=== PATIENT | female | born 1995 | race Caucasian/White ===

== ENCOUNTER 2022-05-26 10:14 | Emergency (ER) | payer SELFPAY ==
[2022-05-26 10:21] VITALS: BP 131/79; PULSE 96; RESP 14; TEMP 36.2; O2SAT 100; BMI 18.9
--- NOTE | 2022-05-26 10:55 | ED.BACK ---
HPI - Back Pain/Injury General Chief Complaint: Back Injury/Pain Stated Complaint: Pain R shoulder blade/back Time Seen by Provider: 05/26/22 10:17 History of Present Illness HPI Narrative: This 26-year-old female comes in reporting severe upper back pain on the right side of the spine that became much worse last evening. She states that she gets zingers that radiate down her right arm and leg at times. She reports a long-term history of back pain since when she was in her grade school and high school years. She does report scoliosis and has been to a chiropractor more recently. She does not report any specific injury event or strenuous activity. She does have pain with rotating her the neck left and right. Related Data Home Medications Medication Instructions Recorded Confirmed venlafaxine 150 mg 225 mg PO DAILY 05/26/22 05/26/22 capsule,extended release 24 hr Previous Rx's Medication Instructions Recorded cyclobenzaprine 10 mg tablet 10 mg PO TID #15 tabs 05/26/22 hydrocodone 5 mg-acetaminophen 325 1 tab PO Q4-6H PRN pain #15 tabs 05/26/22 mg tablet ketorolac 10 mg tablet 10 mg PO Q8H 5 days #15 tabs 05/26/22 methylprednisolone 4 mg tablets in See Rx Instructions PO .COMPLEX 05/26/22 a dose pack (Medrol (Julio C)) #21 ea Allergies Allergy/AdvReac Type Severity Reaction Status Date / Time metronidazole AdvReac Unknown Rash Verified 05/26/22 10:25 Review of Systems Status of ROS: Reports: 10 or more systems reviewed and unremarkable except as noted in History and below Narrative: Constitutional: No fevers, no weight gain or loss. Eyes: No discharge. No vision changes. HENT: No congestion, no sore throat, no ear pain. Cardiovascular: No chest pain, no palpitations. Respiratory: No shortness of breath, no wheezes, no cough. Gastrointestinal: No abdominal pain, no vomiting, no diarrhea. Genitourinary: No dysuria, no hematuria. Musculoskeletal: Right upper back pain as described above with decreased range of motion of her due to spasm. Skin: No rashes, no pruritis. Neurological: No dizziness, weakness, sensory change, speech change. Endo/Heme/Allergies: No bruising or bleeding. No polydipsia. Pysch: no suicidality, no anxiety, no insomnia. All other systems reviewed and are negative. PFSH PFS Social History Smoking Status: Unknown if ever smoked Exam Narrative: Exam Narrative: Constitutional: Well-developed, well-nourished, no acute distress. HEENT: Normocephalic, atraumatic. Neck: Normal range of motion. Nontender. Supple. Heart: Regular. No murmurs. Normal rate. Intact distal pulses. Lungs: Clear to auscultation. No chest discomfort. No wheezes, rhonchi, or rales. Abdomen: Normal bowel sounds. Nontender. No rebound tenderness. Genitalia: Deferred. Back: No midline tenderness when palpating along the spine. Pain is located in the right upper back between the scapula and spine. Extremities: Normal range of motion. No injury. Skin: Intact. No rash. Warm. No erythema or pallor. Neurologic: No altered sensation. No weakness. Alert and oriented. Psychiatric: No suicidality. No anxiety or depression. No insomnia. Nursing notes and vitals signs are reviewed. Const: Vital Signs, click to edit/add: Vital Signs - 24 hr 05/26/22 10:21 Temperature 97.1 F L Pulse Rate [Pulse Oximeter] 96 Respiratory Rate 14 Blood Pressure [Le ft Upper Arm] 131/79 Pulse Oximetry 100 Oxygen Delivery Me thod Room Air Course Vital Signs Vital signs: Initial Vital Signs Temperature 97.1 F L 05/26/22 10:21 Temperature Source Temporal Artery Scan 05/26/22 10:21 Pulse Rate 96 05/26/22 10:21 Pulse Rhythm 05/26/22 10:21 Respiratory Rate 14 05/26/22 10:21 Blood Pressure 131/79 05/26/22 10:21 Blood Pressure Mean 96 05/26/22 10:21 Blood Pressure Position Sitting 05/26/22 10:21 Pulse Oximetry 100 05/26/22 10:21 Oxygen Delivery Method 05/26/22 10:21 Vital Signs Temperature 97.1 F L 05/26/22 10:21 Pulse Rate 96 05/26/22 10:21 Respiratory Rate 14 05/26/22 10:21 Blood Pressure 131/79 05/26/22 10:21 Pulse Oximetry 100 05/26/22 10:21 Oxygen Delivery Method 05/26/22 10:21 Temperature 97.1 F L 05/26/22 10:21 Pulse Rate 96 05/26/22 10:21 Respiratory Rate 14 05/26/22 10:21 Blood Pressure 131/79 05/26/22 10:21 Pulse Oximetry 100 05/26/22 10:21 Oxygen Delivery Method 05/26/22 10:21 MDM - Back Pain/Injury MDM Narrative Medical decision making narrative: This patient comes in with upper back pain as described above. I did attempt to do Spurling's test with her. She gave her best effort but had distinct pain when attempting to extend her neck and turn to the right. There may be a cervical radiculopathy component to her symptoms as it does radiate down at times into her extremities on the right side. She did not have any recent injury event or strenuous activity that mandate imaging at this time. If not improved she may need such imaging. Today she received an intramuscular injection of Toradol 15 mg and prescriptions for Toradol, Cross, Flexeril, and Medrol Dosepak. I informed her regarding the spine clinic here and advised her to follow-up as needed. She sounded very interested in this resource. Discharge Plan Discharge Clinical Impression: Cervical radiculopathy Patient Disposition: Home, Self-Care Condition: Stable Additional Instructions: Take medications as needed and indicated. Follow up with MD or return if worsening. Prescriptions: New cyclobenzaprine 10 mg tablet 10 mg PO TID Qty: 15 0RF hydrocodone-acetaminophen 5-325 mg tablet 1 tab PO Q4-6H PRN (Reason: pain) Qty: 15 0RF ketorolac 10 mg tablet 10 mg PO Q8H 5 Days Qty: 15 0RF methylprednisolone [Medrol (Julio C)] 4 mg tablets,dose pack See Rx Instructions .ROUTE .COMPLEX Qty: 21 0RF Rx Instructions: orally per package directions No Action venlafaxine 150 mg capsule,extended release 24hr 225 mg PO DAILY Label Comments: TAKE 1 CAPSULE BY MOUTH DAILY WITH 75 MG CAPSULE FOR 225 MG TOTAL Follow Up/Referrals: Piero Arias MD [Primary Care Provider] - Stand Alone Forms: [employer] Info Instructions
[2022-05-26] MEDS: KETOROLAC 15 MG/ML inj IM (11:07)
[2022-05-26 11:13] VITALS: BP 131/79; PULSE 96; RESP 14; TEMP 36.2
== END 2022-05-26 11:14 | disposition home or self-care (01) ==
LOC: ED 11:09
PROVIDERS: Emergency Provider Emergency Medicine Emergency Medical Services; PCP Surgery
DX: M54.12 Radiculopathy, cervical region (principal)
CPT/HCPCS: 96372; 99283; 99284; J1885

== ENCOUNTER 2022-06-15 09:40 | Emergency (ER) | payer SELFPAY ==
[2022-06-15 10:34] VITALS: BP 129/86; PULSE 85; RESP 16; O2SAT 98; BMI 18.9
--- NOTE | 2022-06-15 10:49 | ED.GENADULT ---
HPI - General Adult General Time Seen by Provider: 10:50 Date Seen: 06/15/22 Chief complaint: Back Injury/Pain Stated complaint: Back pain Time Seen by Provider: 06/15/22 10:33 Source: patient Mode of arrival: ambulatory History of Present Illness HPI narrative: Medicine is a 26-year-old female past medical history includes scoliosis presents emerged department via private car with lower back pain. Patient states she has chronic lower back pain, she has a followup appointment scheduled with her primary tomorrow for this, she denies any injury or falls, pain is lower lumbar, there is no radiation of pain. Patient states sometimes she has sciatica down her left lower extremity she denies it at this time. She has not had any urinary or bowel retention or incontinence. She denies any weakness, paresthesias or tingling of the lower extremities. Patient denies any abdominal pain, no urinary complaints, she is unsure of her last menstrual period because her periods have been irregular. Patient states this is similar pain is previous, she does a lot a walking with her work, due to the pain she could not wait till tomorrow so she presents emerged department Related Data Home Medications Medication Instructions Recorded Confirmed venlafaxine 150 mg 225 mg PO DAILY 05/26/22 05/26/22 capsule,extended release 24 hr Previous Rx's Medication Instructions Recorded cyclobenzaprine 10 mg tablet 10 mg PO TID #15 tabs 05/26/22 hydrocodone 5 mg-acetaminophen 325 1 tab PO Q4-6H PRN pain #15 tabs 05/26/22 mg tablet ketorolac 10 mg tablet 10 mg PO Q8H 5 days #15 tabs 05/26/22 methylprednisolone 4 mg tablets in See Rx Instructions PO .COMPLEX 05/26/22 a dose pack (Medrol (Julio C)) #21 ea cyclobenzaprine 10 mg tablet 10 mg PO TID #15 tabs 06/15/22 methylprednisolone 4 mg tablets in 4 mg PO DAILY #21 ea 06/15/22 a dose pack (Medrol (Julio C)) naproxen 500 mg tablet 500 mg PO BID 5 days #14 tabs 06/15/22 Allergies Allergy/AdvReac Type Severity Reaction Status Date / Time metronidazole AdvReac Unknown Rash Verified 05/26/22 10:25 Review of Systems Status of ROS: Reports: 10 or more systems reviewed and unremarkable except as noted in History and below PFSH PFSH Social History Smoking Status: Unknown if ever smoked Do you use any of these nicotine containing products: None How often do you have a drink containing alcohol: never How often do you have six or more drinks on one occasion: Never AUDIT-C Alcohol total score: 0 Non-prescribed substance use: denies use service: No Exam Narrative: Exam Narrative: General: No obvious distress sitting comfortably HEENT: Pupils equal round reactive to light Neck: Supple full range of motion, nontender to palpation Lungs: Clear to auscultation bilaterally Abdomen: Soft nontender, bowel sounds present Heart: Normal sinus rhythm S1-S2 Muscle skeletal: Tender to palpation the upper lumbar midline, no step-offs or saddle anesthesia, she also has tenderness to the paraspinal musculature bilaterally, straight leg raise and crossover at 20? negative, equal patellar reflexes bilaterally Neuro: Gait within normal limits, alert awake and oriented x3 Const: Vital Signs, click to edit/add: Vital Signs - 24 hr 06/15/22 10:34 Pulse Rate [Left P ulse Oximeter] 85 Respiratory Rate 16 Blood Pressure [Ri ght Upper Arm] 129/86 Pulse Oximetry 98 Oxygen Delivery Me thod Room Air Course Course Hospital Course: 10:30 AM: AIDET performed. No worrisome findings on exam, plan to treat symptomatically, IM dosed Toradol 60 mg and a Lidoderm Patch to be applied, trauma or injury, no imaging to be obtained. Patient has followup tomorrow morning. Differential diagnosis include life-threatening cauda equina and epidural abscess, other differential diagnosis considered include sprain, contusion, nerve root entrapment, radiculopathy, muscle spasm, urolithiasis, lumbar fracture, pyelonephritis as well as other etiologies. The patient denied saddle anesthesia bowel or bladder incontinence or retention or any lower extremity weakness. Reevaluation(s) Reevaluation #1: Patient was updated on her normal urinalysis results, she is feeling better after above care given, she has a followup appointment scheduled for tomorrow, prescription for Flexeril 5-10 mg 3 times daily, naproxen 500 mg twice daily and Medrol Dosepak to be taken over the next week, reasons to return given. Vital Signs Vital signs: Initial Vital Signs Pulse Rate 85 06/15/22 10:34 Pulse Rhythm 06/15/22 10:34 Pulse Strength 3+ Normal 06/15/22 10:34 Respiratory Rate 16 06/15/22 10:34 Blood Pressure 129/86 06/15/22 10:34 Blood Pressure Mean 100 06/15/22 10:34 Blood Pressure Position Sitting 06/15/22 10:34 Pulse Oximetry 98 06/15/22 10:34 Oxygen Delivery Method 06/15/22 10:34 Vital Signs Pulse Rate 85 06/15/22 10:34 Respiratory Rate 16 06/15/22 10:34 Blood Pressure 129/86 06/15/22 10:34 Pulse Oximetry 98 06/15/22 10:34 Oxygen Delivery Method 06/15/22 10:34 Pulse Rate 85 06/15/22 10:34 Respiratory Rate 16 06/15/22 10:34 Blood Pressure 129/86 06/15/22 10:34 Pulse Oximetry 98 06/15/22 10:34 Oxygen Delivery Method 06/15/22 10:34 Medical Decision Making Lab Data Labs: Lab Results 06/15/22 Range/Units 10:46 Urine Color Yellow (Yellow) Urine Appearance Clear (Clear) Urine pH 7.5 (5.0-8.5) Ur Specific [place] 1.015 (1.000-1.030) Urine Protein Negative (Negative) Urine Glucose (UA) Negative (Negative) Urine Ketones Negative (Negative) Urine Blood Negative (Negative) Urine Nitrite Negative (Negative) Urine Bilirubin Negative (Negative) Urine Urobilinogen 0.2 (0.2-1.0) Ur Leukocyte Esterase Negative (Negative) Discharge Plan Discharge Clinical Impression: Lower back pain Patient Disposition: Home, Self-Care Condition: Improved Instructions: Back Pain (ED) Additional Instructions: Medrol Dosepak as directed, naproxen 500 mg twice daily over the next 7 days, Flexeril 5-10 mg every 8 hours as needed for back pain and muscle spasm, follow-up with primary care provider as scheduled tomorrow, return if worsening symptoms. Prescriptions: New methylprednisolone [Medrol (Julio C)] 4 mg tablets,dose pack 4 mg PO DAILY Qty: 21 0RF cyclobenzaprine 10 mg tablet 10 mg PO TID Qty: 15 0RF naproxen 500 mg tablet 500 mg PO BID 5 Days Qty: 14 2RF No Action venlafaxine 150 mg capsule,extended release 24hr 225 mg PO DAILY Label Comments: TAKE 1 CAPSULE BY MOUTH DAILY WITH 75 MG CAPSULE FOR 225 MG TOTAL cyclobenzaprine 10 mg tablet 10 mg PO TID Qty: 15 0RF hydrocodone-acetaminophen 5-325 mg tablet 1 tab PO Q4-6H PRN (Reason: pain) Qty: 15 0RF ketorolac 10 mg tablet 10 mg PO Q8H 5 Days Qty: 15 0RF methylprednisolone [Medrol (Julio C)] 4 mg tablets,dose pack See Rx Instructions .ROUTE .COMPLEX Qty: 21 0RF Rx Instructions: orally per package directions Follow Up/Referrals: Piero Arias MD [Primary Care Provider] - Stand Alone Forms: [employer] Info Instructions
[2022-06-15 11:00] LABS: Appearance Urine Clear (Clear); Bilirubin Urine Negative (Negative); Blood Urine Negative (Negative); Color Urine Yellow (Yellow); Glucose Urine Negative (Negative); Ketones Urine Negative (Negative); Leukocyte Esterase Urine Negative (Negative); Nitrite Urine Negative (Negative); Protein Urine Negative (Negative); Specific Gravity Urine 1.015 (1.000-1.030); Urobilinogen Urine 0.2 (0.2-1.0); pH Urine 7.5 (5.0-8.5)
[2022-06-15] MEDS: KETOROLAC 60 MG/2 ML inj IM (11:12)
[2022-06-15] MEDS: LIDOCAINE 5% PATCH 1 PATCH TRANSDERMA (11:12)
== END 2022-06-15 13:40 | disposition home or self-care (01) ==
PROVIDERS: Emergency Provider Student in an Organized Health Care Education/Training Program; PCP Surgery
DX: M54.50 Low back pain, unspecified (principal)
CPT/HCPCS: 81003; 96372; 99284; A9270; J1885

== ENCOUNTER 2023-02-07 16:22 | Emergency (ER) | payer OTHER, SELFPAY ==
[2023-02-07 16:36] VITALS: BP 118/78; PULSE 114; RESP 16; TEMP 36.5; O2SAT 96; BMI 19.2
--- NOTE | 2023-02-07 21:06 | ED.GENADULT ---
HPI - General Adult General Date Seen: 02/07/23 Chief complaint: Extremity Pain/Injury, Upper Stated complaint: Pinched nerve R shoulder Time Seen by Provider: 02/07/23 18:05 Source: patient Mode of arrival: ambulatory Limitations: no limitations History of Present Illness HPI narrative: Patient is a 27-year-old female who comes in with less than 12 hours of pain in her neck, upper back, right arm. There is no specific injury. She was just doing some activities around her house and with her toddler and felt a pulling sensation in the right side of the neck. She tried some ibuprofen without much relief and presents to the emergency department within six or 8 hours of the onset of her pain. There is no radiation of pain down the right arm. She tells me she has chronic back pain related to scoliosis but that she does not take meds for that. She says this is the 2nd or 3rd time she has had this type of pain in her neck and rather than check in at the clinic she just comes to the emergency department. She has never been through physical therapy. She has never seen a chiropractor. Related Data Home Medications Medication Instructions Recorded Confirmed venlafaxine 150 mg 225 mg PO DAILY 05/26/22 02/07/23 capsule,extended release 24 hr Previous Rx's Medication Instructions Recorded cyclobenzaprine 5 mg tablet 5 mg PO BID PRN muscle spasm #20 02/07/23 tabs naproxen 500 mg tablet 500 mg PO BID #60 tabs 02/07/23 prednisone 20 mg tablet 40 mg (2 x 20 mg) PO DAILY #10 tabs 02/07/23 Allergies Allergy/AdvReac Type Severity Reaction Status Date / Time metronidazole AdvReac Unknown Rash Verified 02/07/23 16:42 Review of Systems Narrative: Review of systems is outlined above otherwise noted to be negative. PFSH PFSH Social History Smoking Status: Unknown if ever smoked Do you use any of these nicotine containing products: None How often do you have a drink containing alcohol: never How often do you have six or more drinks on one occasion: Never AUDIT-C Alcohol total score: 0 Non-prescribed substance use: denies use service: No Exam Narrative: Exam Narrative: Vitals noted. On exam she has pain with attempts to fully flex her neck, rotate to the right, side bend in either direction. There is no bony tenderness. She has myofascial tightness and tenderness in the right upper back from the midscapular area up through the trapezius and into the deltoid. The trap is the most tender. No palpable spasms. Const: Vital Signs, click to edit/add: Vital Signs - 24 hr 02/07/23 16:36 Temperature 97.7 F Pulse Rate [Pulse Oximeter] 114 H Respiratory Rate 16 Blood Pressure [Le ft Upper Arm] 118/78 Pulse Oximetry 96 Oxygen Delivery Me thod Room Air Course Course Hospital Course: Patient seen and examined. This is clearly not a bony injury. We discussed that this is muscular. She would likely benefit from some physical therapy if this is recurrent. For now we will treat with ice, massage, anti-inflammatory medication. She can use a muscle relaxer to help with tightness and spasms. She might benefit from PT program to help with her chronic mid and low back pain. She tells me that she does not have the time or patience for something like that. Vital Signs Vital signs: Initial Vital Signs Temperature 97.7 F 02/07/23 16:36 Temperature Source Temporal Artery Scan 02/07/23 16:36 Pulse Rate 114 H 02/07/23 16:36 Pulse Rhythm Regular 02/07/23 16:36 Pulse Strength 3+ Normal 02/07/23 16:36 Respiratory Rate 16 02/07/23 16:36 Blood Pressure 118/78 02/07/23 16:36 Blood Pressure Mean 91 02/07/23 16:36 Blood Pressure Position Sitting 02/07/23 16:36 Pulse Oximetry 96 02/07/23 16:36 Oxygen Delivery Method Room Air 02/07/23 16:36 Vital Signs Temperature 97.7 F 02/07/23 16:36 Pulse Rate 114 H 02/07/23 16:36 Respiratory Rate 16 02/07/23 16:36 Blood Pressure 118/78 02/07/23 16:36 Pulse Oximetry 96 02/07/23 16:36 Oxygen Delivery Method Room Air 02/07/23 16:36 Temperature 97.7 F 02/07/23 16:36 Pulse Rate 114 H 02/07/23 16:36 Respiratory Rate 16 02/07/23 16:36 Blood Pressure 118/78 02/07/23 16:36 Pulse Oximetry 96 02/07/23 16:36 Oxygen Delivery Method Room Air 02/07/23 16:36 Discharge Plan Discharge Clinical Impression: Muscle strain of right upper back Patient Disposition: Home, Self-Care Condition: Stable Additional Instructions: Ice, massage, stretching. Naproxen 500 mg twice daily. Flexeril 5 mg twice daily as needed for spasms. Prednisone 40 mg daily for five days. Follow-up in the clinic if symptoms are worsening or not improving. Prescriptions: New prednisone 20 mg tablet 40 mg PO DAILY Qty: 10 0RF cyclobenzaprine 5 mg tablet 5 mg PO BID PRN (Reason: muscle spasm) Qty: 20 0RF naproxen 500 mg tablet 500 mg PO BID Qty: 60 0RF No Action venlafaxine 150 mg capsule,extended release 24hr 225 mg PO DAILY Patient Comments: TAKE 1 CAPSULE BY MOUTH DAILY WITH 75 MG CAPSULE FOR 225 MG TOTAL Follow Up/Referrals: Piero Arias MD [Primary Care Provider] - Stand Alone Forms: [employer] Info Instructions
== END 2023-02-07 19:08 | disposition home or self-care (01) ==
LOC: ED 19:01
PROVIDERS: Emergency Provider Family Medicine; PCP Surgery
DX: S29.012A Strain of muscle and tendon of back wall of thorax, initial encounter (principal); X50.1XXA Overexertion from prolonged static or awkward postures, initial encounter
CPT/HCPCS: 99282; 99283

== ENCOUNTER 2023-03-08 17:40 | Emergency (ER) | payer OTHER, SELFPAY ==
[2023-03-08 17:48] VITALS: BP 151/89; PULSE 63; RESP 16; TEMP 36.6; O2SAT 95; BMI 19.2
--- NOTE | 2023-03-08 18:17 | ED.BACK ---
HPI - Back Pain/Injury General Chief Complaint: Back Injury/Pain Stated Complaint: Pinched nerve Time Seen by Provider: 03/08/23 17:43 History of Present Illness HPI Narrative: This 27-year-old female comes in reporting pain in her neck radiating down into her right arm. This is flared up over the past day or so. She does not describe any recent injury event or strenuous activity. She has had symptoms like this in the past and does have a appointment with the spine clinic in a couple months. She reports pain in the right side of her neck radiating into her shoulder and into her arm and forearm. Related Data Home Medications Medication Instructions Recorded Confirmed venlafaxine 150 mg 225 mg PO DAILY 05/26/22 03/08/23 capsule,extended release 24 hr Previous Rx's Medication Instructions Recorded cyclobenzaprine 5 mg tablet 5 mg PO BID PRN muscle spasm #20 02/07/23 tabs naproxen 500 mg tablet 500 mg PO BID #60 tabs 02/07/23 gabapentin 100 mg capsule 100 mg PO TID #30 caps 03/08/23 ketorolac 10 mg tablet 10 mg PO Q8H 5 days #15 tabs 03/08/23 methylprednisolone 4 mg tablets in See Rx Instructions PO .COMPLEX 03/08/23 a dose pack (Medrol (Julio C)) #21 ea tizanidine 4 mg capsule (Zanaflex) 4 mg PO TID PRN muscle spasticity 03/08/23 #20 caps Allergies Allergy/AdvReac Type Severity Reaction Status Date / Time metronidazole AdvReac Unknown Rash Verified 02/07/23 16:42 Review of Systems Status of ROS: Reports: 10 or more systems reviewed and unremarkable except as noted in History and below Narrative: Constitutional: No fevers, no weight gain or loss. Eyes: No discharge. No vision changes. HENT: No congestion, no sore throat, no ear pain. Cardiovascular: No chest pain, no palpitations. Respiratory: No shortness of breath, no wheezes, no cough. Gastrointestinal: No abdominal pain, no vomiting, no diarrhea. Genitourinary: No dysuria, no hematuria. Musculoskeletal: Decreased range of motion of her neck due to pain. Skin: No rashes, no pruritis. Neurological: No dizziness, weakness, sensory change, speech change. Endo/Heme/Allergies: No bruising or bleeding. No polydipsia. Pysch: no suicidality, no anxiety, no insomnia. All other systems reviewed and are negative. PFSH PFSH Social History Smoking Status: Never smoker Do you use any of these nicotine containing products: None How often do you have a drink containing alcohol: never How often do you have six or more drinks on one occasion: Never AUDIT-C Alcohol total score: 0 Non-prescribed substance use: denies use service: No Exam Narrative: Exam Narrative: Constitutional: Well-developed, well-nourished, no acute distress. HEENT: Normocephalic, atraumatic. Neck: Tenderness on the right side of her neck radiating into her right arm. Decreased range of motion due to pain. No point tenderness when palpating along the spine. Heart: Intact distal pulses. Lungs: No chest discomfort. No wheezes, rhonchi, or rales. Abdomen: Nontender. Back: Normal range of motion. Extremities: Normal range of motion. No injury. Skin: Intact. No rash. Warm. No erythema or pallor. Neurologic: No altered sensation. No weakness. Alert and oriented. Psychiatric: No suicidality. No anxiety or depression. No insomnia. Nursing notes and vitals signs are reviewed. Const: Vital Signs, click to edit/add: Vital Signs - 24 hr 03/08/23 17:48 Temperature 97.9 F Pulse Rate [Left P ulse Oximeter] 63 Respiratory Rate 16 Blood Pressure [Le ft Upper Arm] 151/89 H Pulse Oximetry 95 Oxygen Delivery Me thod Room Air Course Vital Signs Vital signs: Initial Vital Signs Temperature 97.9 F 03/08/23 17:48 Temperature Source Temporal Artery Scan 03/08/23 17:48 Pulse Rate 63 03/08/23 17:48 Pulse Rhythm Regular 03/08/23 17:48 Respiratory Rate 16 03/08/23 17:48 Blood Pressure 151/89 H 03/08/23 17:48 Blood Pressure Mean 109 H 03/08/23 17:48 Blood Pressure Position Sitting 03/08/23 17:48 Pulse Oximetry 95 03/08/23 17:48 Oxygen Delivery Method Room Air 03/08/23 17:48 Vital Signs Temperature 97.9 F 03/08/23 17:48 Pulse Rate 63 03/08/23 17:48 Respiratory Rate 16 03/08/23 17:48 Blood Pressure 151/89 H 03/08/23 17:48 Pulse Oximetry 95 03/08/23 17:48 Oxygen Delivery Method Room Air 03/08/23 17:48 Temperature 97.9 F 03/08/23 17:48 Pulse Rate 63 03/08/23 17:48 Respiratory Rate 16 03/08/23 17:48 Blood Pressure 151/89 H 03/08/23 17:48 Pulse Oximetry 95 03/08/23 17:48 Oxygen Delivery Method Room Air 03/08/23 17:48 MDM - Back Pain/Injury MDM Narrative Medical decision making narrative: This patient comes in with upper back pain as described above. She did not have any recent injury event or strenuous activity that mandate imaging at this time. If not improved she may need such imaging. Today she received an intramuscular injection of morphine 6 mg and prescriptions for Toradol, Zanaflex, gabapentin, and Medrol Dosepak. I recommended that she give a call to the spine clinic for sooner appointment. Discharge Plan Discharge Clinical Impression: Cervical radiculopathy Patient Disposition: Home w/ Parent or Adult Condition: Stable Additional Instructions: Take medications as needed and indicated. Activity as tolerated. Follow up with Spine Clinic. For appointment call [phone]. Return if worsening. Prescriptions: New ketorolac 10 mg tablet 10 mg PO Q8H 5 Days Qty: 15 0RF gabapentin 100 mg capsule 100 mg PO TID Qty: 30 2RF methylprednisolone [Medrol (Julio C)] 4 mg tablets,dose pack See Rx Instructions .ROUTE .COMPLEX Qty: 21 0RF Rx Instructions: orally per package directions tizanidine [Zanaflex] 4 mg capsule 4 mg PO TID PRN (Reason: muscle spasticity) Qty: 20 0RF No Action venlafaxine 150 mg capsule,extended release 24hr 225 mg PO DAILY Patient Comments: TAKE 1 CAPSULE BY MOUTH DAILY WITH 75 MG CAPSULE FOR 225 MG TOTAL cyclobenzaprine 5 mg tablet 5 mg PO BID PRN (Reason: muscle spasm) Qty: 20 0RF naproxen 500 mg tablet 500 mg PO BID Qty: 60 0RF Follow Up/Referrals: Piero Arias MD [Primary Care Provider] - Stand Alone Forms: [facility] Info Instructions
[2023-03-08] MEDS: MORPHINE 10 MG/ML inj 6 MG IM (18:24)
[2023-03-08 18:29] VITALS: BP 148/98; PULSE 70; RESP 16
== END 2023-03-08 18:30 | disposition home or self-care (01) ==
PROVIDERS: Emergency Provider Emergency Medicine Emergency Medical Services; PCP Surgery
DX: M54.12 Radiculopathy, cervical region (principal)
CPT/HCPCS: 96372; 99283; 99284; J2270

== ENCOUNTER 2024-01-01 21:45 | Emergency (ER) | payer OTHER, SELFPAY ==
[2024-01-01 22:01] VITALS: BP 118/74; PULSE 92; RESP 20; TEMP 35.7; O2SAT 96; BMI 19.2
[2024-01-01 22:05] LABS: Appearance Urine Cloudy (Clear); Bilirubin Urine Negative (Negative); Blood Urine 3+ (Negative); Color Urine Pink (Yellow); Glucose Urine Negative (Negative); Ketones Urine Negative (Negative); Leukocyte Esterase Urine 1+ (Negative); Nitrite Urine Negative (Negative); Protein Urine 2+ (Negative); Specific Gravity Urine 1.015 (1.000-1.030); Urobilinogen Urine 0.2 (0.2-1.0); pH Urine 5.5 (5.0-8.5)
--- NOTE | 2024-01-01 22:23 | ED_ITS ---
HPI - General Adult General Chief complaint: Urogenital Problems, Female Stated complaint: poss UTI Time Seen by Provider: 01/01/24 21:47 History of Present Illness HPI narrative: This 28-year-old female comes in reporting lower abdominal pain and pain with voiding urine. She has increased frequency and wonders if she has a urinary tract infection. She states that she had an elective about 2 weeks ago and had cramping and bleeding. She put a tampon in during this time in for got that was in there. She removed it after about 4 days. This was now 5 days ago that the tampon was removed. She states that she is not having any cramping or bleeding and does not have any fevers. Related Data Home Medications ?Medication ?Instructions ?Recorded ?Confirmed venlafaxine 150 mg 150 mg PO DAILY 05/26/22 01/01/24 capsule,extended release 24 hr Previous Rx's ?Medication ?Instructions ?Recorded cyclobenzaprine 5 mg tablet 5 mg PO BID PRN muscle spasm #20 02/07/23 tabs naproxen 500 mg tablet 500 mg PO BID #60 tabs 02/07/23 gabapentin 100 mg capsule 100 mg PO TID #30 caps 03/08/23 ketorolac 10 mg tablet 10 mg PO Q8H 5 days #15 tabs 03/08/23 methylprednisolone 4 mg tablets in See Rx Instructions PO .COMPLEX 03/08/23 a dose pack (Medrol (Julio C)) #21 ea tizanidine 4 mg capsule (Zanaflex) 4 mg PO TID PRN muscle spasticity 03/08/23 #20 caps fluconazole 100 mg tablet 100 mg PO DAILY #7 tabs 01/01/24 (Diflucan) Allergies Allergy/AdvReac Type Severity Reaction Status Date / Time metronidazole AdvReac Unknown Rash Verified 01/01/24 22:01 Review of Systems Status of ROS: Reports: 10 or more systems reviewed and unremarkable except as noted in History and below Narrative: Constitutional: No fevers, no weight gain or loss. Eyes: No discharge. No vision changes. HENT: No congestion, no sore throat, no ear pain. Cardiovascular: No chest pain, no palpitations. Respiratory: No shortness of breath, no wheezes, no cough. Gastrointestinal: No diarrhea. She has had some nausea and did vomit once today . Genitourinary: She reports dysuria symptoms with hematuria as described above. Musculoskeletal: Normal range of motion. Skin: No rashes, no pruritis. Neurological: No dizziness, weakness, sensory change, speech change. Endo/Heme/Allergies: No bruising or bleeding. No polydipsia. Pysch: no suicidality, no anxiety, no insomnia. All other systems reviewed and are negative. [facility] Social History Smoking Status: Never smoker Do you use any of these nicotine containing products: None How often do you have a drink containing alcohol: never How often do you have six or more drinks on one occasion: Never AUDIT-C Alcohol total score: 0 Non-prescribed substance use: denies use service: No Exam Narrative: Exam Narrative: Constitutional: Well-developed, well-nourished, no acute distress. HEENT: Normocephalic, atraumatic. Neck: Normal range of motion. Nontender. Supple. Heart: Regular. No murmurs. Normal rate. Intact distal pulses. Lungs: Clear to auscultation. No chest discomfort. No wheezes, rhonchi, or rales. Abdomen: Normal bowel sounds. Diffuse tenderness in the lower abdomen. No rebound tenderness. Genitalia: Deferred. Back: No midline tenderness. Normal range of motion. Extremities: Normal range of motion. No injury. Skin: Intact. No rash. Warm. No erythema or pallor. Neurologic: No altered sensation. No weakness. Alert and oriented. Psychiatric: No suicidality. No anxiety or depression. No insomnia. Nursing notes and vitals signs are reviewed. Const: Vital Signs, click to edit/add: Vital Signs - 24 hr 01/01/24 22:01 Temperature 96.3 F L Pulse Rate [Pulse Oximeter] 92 Respiratory Rate 20 Blood Pressure [Le ft Upper Arm] 118/74 Pulse Oximetry 96 Oxygen Delivery Me thod Room Air Course Vital Signs Vital signs: Initial Vital Signs Temperature 96.3 F L 01/01/24 22:01 Temperature Source Temporal Artery Scan 01/01/24 22:01 Pulse Rate 92 01/01/24 22:01 Respiratory Rate 20 01/01/24 22:01 Blood Pressure 118/74 01/01/24 22:01 Blood Pressure Mean 88 01/01/24 22:01 Blood Pressure Position Sitting 01/01/24 22:01 Pulse Oximetry 96 01/01/24 22:01 Oxygen Delivery Method Room Air 01/01/24 22:01 Vital Signs Temperature 96.3 F L 01/01/24 22:01 Pulse Rate 92 01/01/24 22:01 Respiratory Rate 20 01/01/24 22:01 Blood Pressure 118/74 01/01/24 22:01 Pulse Oximetry 96 01/01/24 22:01 Oxygen Delivery Method Room Air 01/01/24 22:01 Temperature 96.3 F L 01/01/24 22:01 Pulse Rate 92 01/01/24 22:01 Respiratory Rate 20 01/01/24 22:01 Blood Pressure 118/74 01/01/24 22:01 Pulse Oximetry 96 01/01/24 22:01 Oxygen Delivery Method Room Air 01/01/24 22:01 Medical Decision Making MDM Narrative Medical decision making narrative: This 28-year-old female comes in reporting dysuria symptoms as described above. A urinalysis is obtained and does show evidence of hematuria and 5-10 white blood cells per high-powered field. She was wearing a tampon that she forgot about and states that it was about 4 days before she removed it. This was 5 days ago and she is not showing any signs of toxic shock syndrome or other abnormal vital signs. I did discuss other lab and imaging options with the patient which she declined at this time. The patient did received prescription for Augmentin and Diflucan. I did describe signs and symptoms that would indicate a need for return and re-evaluation. Lab Data Labs: Lab Results 01/01/24 Range/Units 21:59 Urine Color [place] A (Yellow) Urine Appearance Cloudy A (Clear) Urine pH 5.5 (5.0-8.5) Ur Specific [place] 1.015 (1.000-1.030) Urine Protein 2+ A (Negative) Urine Glucose (UA) Negative (Negative) Urine Ketones Negative (Negative) Urine Blood 3+ A (Negative) Urine Nitrite Negative (Negative) Urine Bilirubin Negative (Negative) Urine Urobilinogen 0.2 (0.2-1.0) Ur Leukocyte Esterase 1+ A (Negative) Urine RBC >100 A (0-2) Urine WBC 5-10 A (0-5) Ur Squamous Epith Cells None (None-Few) Urine Bacteria None (None) Discharge Plan Discharge Clinical Impression: Urinary tract infection Patient Disposition: Home, Self-Care Condition: Stable Additional Instructions: Take medication as prescribed. Follow up with MD return if worsening symptoms occur. Prescriptions: New fluconazole [Diflucan] 100 mg tablet 100 mg PO DAILY Qty: 7 0RF No Action venlafaxine 150 mg capsule,extended release 24hr 150 mg PO DAILY Patient Comments: TAKE 1 CAPSULE BY MOUTH DAILY WITH 75 MG CAPSULE FOR 225 MG TOTAL cyclobenzaprine 5 mg tablet 5 mg PO BID PRN (Reason: muscle spasm) Qty: 20 0RF naproxen 500 mg tablet 500 mg PO BID Qty: 60 0RF ketorolac 10 mg tablet 10 mg PO Q8H 5 Days Qty: 15 0RF gabapentin 100 mg capsule 100 mg PO TID Qty: 30 2RF methylprednisolone [Medrol (Julio C)] 4 mg tablets,dose pack See Rx Instructions .ROUTE .COMPLEX Qty: 21 0RF Rx Instructions: orally per package directions tizanidine [Zanaflex] 4 mg capsule 4 mg PO TID PRN (Reason: muscle spasticity) Qty: 20 0RF Follow Up/Referrals: Piero Arias MD [Primary Care Provider] - Stand Alone Forms: [employer] Info Instructions
[2024-01-01 22:25] LABS: RBC Urine >100 (0-2)
[2024-01-01] MEDS: FLUCONAZOLE 100 MG TABLET 200 MG PO (22:54)
[2024-01-01] MEDS: AMOXICILLIN/CLAVULANATE 875 mg/125 mg TABLET PO (22:58)
== END 2024-01-01 23:04 | disposition home or self-care (01) ==
PROVIDERS: Emergency Provider Emergency Medicine Emergency Medical Services; PCP Surgery
DX: N39.0 Urinary tract infection, site not specified (principal)
CPT/HCPCS: 81001; 87086; 87186; 99283; 99284; A9270

== ENCOUNTER 2025-02-10 22:26 | Emergency (ER) | payer OTHER, SELFPAY ==
--- OUTSIDE RECORDS SUMMARY | 2025-02-10 22:27 | XMS_ITS | Clinical Summary ---
Author Organization [employer] [facility] Address [address] [place] [id number] Care Team Providers Care International Student Advisor Name Role Phone Piero Arias MD Primary Care Provider [phone] Allergies Active Allergy Reactions Criticality Noted Date Comments Nitrofurantoin Hives Medium 01/27/2020 Metronidazole Rash 02/07/2023 Medications * This document contains information received from the source organization and may not represent a complete record from that organization. magic mouthwash 1:1:1 (diphen 12.5mg/5mL-lid ocaine 2%-maalox [phone]/5 ml) (AMB MIX)Indication s:Mouth sores Swish and spit 10 mL by mouth 4 times daily if needed for Mouth Sores. 240 mL 4 Active venlafaxine 150 mg Extended-Relea se capsuleIndicat ions:Generaliz ed anxiety disorder,Curre nt moderate episode of major depressive disorder without prior episode (HC) TAKE 1 CAPSULE(150 MG) BY MOUTH EVERY DAY WITH THE EVENING MEAL 30 Capsule 5 Active venlafaxine 150 mg Extended-Relea se capsuleIndicat ions:Generaliz ed anxiety disorder,Curre nt moderate episode of major depressive disorder without prior episode (HC) Take 1 Capsule (150 mg) by mouth once daily with evening meal. 30 Capsule 1 5 01/14/20 25 Discontinued Active Problems Problem Noted Date Diagnosed Date Attention deficit hyperactivity disorder (ADHD) 06/24/2024 Excoriation (skin-picking) disorder 06/24/2024 Pap smear for cervical cancer screening 11/27/19 24 Overview (11/27/2023): 10/2023 NIL/HPV negative. Plan: Pap/HPV due 10/2028. Encounters for administrative purpose 07/22/2021 Vaginal delivery 06/15/2021 04/13/2020 Overview (09/22/2020): Component Latest Ref Rng & Units 09/21/2020 HEMOGLOBIN 12.0 - 16.0 g/dL 10.5 (L) MCV 80 - 100 fL 85 HEMOGLOBIN A1C SCREENING <=6.4 % 5.8 GLUCOSE,RANDOM 65 - 140 mg/dL 67 Estimated Date of Delivery: 10/08/20 Patient's last menstrual period was 01/02/2020 (exact date). Last Tdap- 09/07/2020 Last Flu vaccine- 05/12/2011 Glucose (GTT) result- Component Latest Ref Rng & Units 08/14/2020 GLUCOSE,GESTATIONAL 65 - 139 mg/dL 150 (H) 20 week US: FINDINGS: Sonographic imaging demonstrates a single living intrauterine gestation. Fetus demonstrates a regular cardiac rate of 155 beats per minute. Fetus has a breech position. The placenta lies anteriorly without evidence of placenta previa. Amniotic fluid volume appears normal. Single deepest vertical pocket: 3.3 cm. The cervix is closed and measures 3 point cm in length. The composite ultrasound gestational age is calculated at 22 weeks 4 days with an estimated sonographic due date of 10/19/2020. Allergies Allergen Reactions Macrodantin [Nitrofurantoin] Hives OB History Para Term AB Living 4 0 0 0 0 2 SAB TAB Ectopic Multiple Live Births 0 0 0 0 0 # Outcome Date GA Lbr Robby/2nd Weight Sex Delivery Anes PTL Lv 4 Current 3 2 1 Comments: System Generated. Please review and update details. Create lab flowsheet for OB labs- Component Latest Ref Rng & Units 04/10/2020 04/10/2020 04/10/2020 9:52 AM 9:52 AM 9:52 AM ANTIBODY SCREEN Negative Negative SPECIMEN EXPIRATION DATE/TIME 04/13/20 23:59 HEMOGLOBIN 12.0 - 16.0 g/dL 13.9 MCV 80 - 100 fL 89 PLATELET COUNT 140 - 440 thou/cu mm 346 MPV 6.5 - 11.0 fL 9.0 RUBELLA IGG ANTIBODY Equivocal 0.96 (L) HEMOGLOBIN A1C SCREENING <=6.4 % 5.2 ABORH A Rh Positive HBSAG Nonreactive Nonreactive HEPATITIS C ANTIBODY Non-Reactive Non-Reactive HIV-1/HIV-2 ANTIBODY Non-Reactive Non-Reactive TREPONEMA PALLIDUM Negative Negative Past Medical History: . Date Bunion 11/14/2008 Left Chicken pox 09/30 Preeclampsia with second , at 38 weeks. 1 year of odd neurological symptoms afterwards. Past Surgical History: . Laterality Date BUNIONECTOMY 2008 left foot No data on file. Problems (from 04/10/20 to present) No problems associated with this episode. Kylah Salazar RN.....04/13/2020 8:37 AM Bunion 02/21/2019 Fatigue 02/28/2018 Generalized anxiety disorder 02/28/2018 Moderate episode of recurrent major depressive d isorder 02/28/2018 Other bipolar disorder 02/28/2018 Bipolar 2 disorder, major depressive episode 07/2017 Major depressive disorder, single episode, unspe cified 11/01/2010 Anxiety state, unspecified 08/30/2010 Resolved Problems Problem Noted Date Diagnosed Date Resolved Date Bunion 01/24/2019 01/22/2020 Supervision of normal first 05/26/2011 08/03/2018 Bunion 11/14/2008 05/12/2011 Overview (11/14/2008): Left Preeclampsia 08/03/2018 Overview (04/28/2017): with second Encounters Date Type Department Care Team Description 01/10/2025 [place] [facility] [phone] [place] [address] Gildardo Kelley DO Refill Request (Venlafaxine) from Last 3 Months Immunizations Immunization Administration Dates Next Due COVID-19 vaccine (Moderna 100mcg/0.5mL) PFCHELO 04/06/2021,03/09/2021 DTP 01/01/1999, 5,02/18/1994,12/17,1993 Hepatitis B (Peds) 09/05/2006,03/14/2006, 002 Human Papilloma Virus Vaccine 10/29/2010, 011 Inactivated Polio Vaccine 01/01/1999,,1993,08/25 Influenza, IIV3 (Age >=3 years) 05/12/2011 MENINGOCOCCAL VACCINE 2 VIAL 2MO-55YO (MENVEO) 07/25/2012 MMR 09/23/2020,01/01/1999,03/03/1995 Meningococcal Vaccine (Menactra) 03/27/2008 Tdap 09/07/2020,12/16/2011 Family History Medical History Relation Name Comments Good Health Brother 1 Good Health Brother 2 Depression Father Hypertension Father Anxiety disorder Mother Good Health Mother Good Health Sister Relation Name Status Comments Brother 1 Alive Brother 2 Alive Father Alive Mother Alive Sister Alive Social History Tobacco Use Types Packs/Day Years Used Date Smoking Tobacco: Never Smokeless Tobacco: Never Tobacco Cessation:Counseling Given: Not Answered Comments:06/24/2024 Alcohol Use Standard Drinks/Week Comments Not Currently 0 (1 standard drink = 0.6 oz pur e alcohol) Quit 2021; 06/24/2024 PHQ-2 Answer Date Recorded PHQ-2 TOTAL SCORE 6 06/24/2024 Social Connections Answer Date Recorded Do you often feel lonely or isolated from those around you? 0 11/13/2023 Financial Resource Strain Answer Date R ecorded Difficulty of Paying Living Expenses 3 11/13/2023 Difficulty of Paying Living Expenses Not on file 11/13/2023 Food Insecurity Answer Date Recorded Do you worry your food will run out before you are able to buy more? 1 11/13/2023 Transportation Needs Answer Date Record ed Does lack of transportation keep you from medica l appointments? 1 11/13/2023 Does lack of transportation keep you from work, meetings or getting things that you need? 1 11/13/2023 Housing Stability Answer Date Recorded What is your housing situation today? 1 11/13/2023 Utilities Answer Date Recorded Do you have trouble paying f or utilities (for example, heat, electricity, water, phone)? 1 11/13/2023 Comments No Sex and Gender Information Value Date Recorded Sex Assigned at Female 06/14/2021 10:23 AM MYSQL DEVELOPER Legal Sex Female 5:26 AM MYSQL DEVELOPER Gender Identity Female 06/14/2021 10:23 AM MYSQL DEVELOPER Sexual Orientation Not on file Occupation Industry Job Start Date Job End Date student Not on file Not on file Not on file Obstetrics History Para Term AB IAB SAB Ectopic Multiple Livin g Live Births 3 2 2 2 Date Outcome GA Total Labor Labor/2nd/3rd Weight Sex Type Anes PTL Janie A1 A5 Name Clin Term Term Last Filed Vital Signs Vital Sign Reading Time Taken Comments Blood Pressure 139/63 06/24/2024 11:38 AM MYSQL DEVELOPER Pulse 98 06/24/2024 11:38 AM MYSQL DEVELOPER Temperature 37.4 C (99.3 F) 11/17/2022 11:51 AM CDT Respiratory Rate 20 08/05/2021 5:57 PM MYSQL DEVELOPER Oxygen Saturation 95% 06/18/2024 10: 39 AM MYSQL DEVELOPER Inhaled Oxygen Concentration - - Weight 54.8 kg (120 lb 14.4 oz) 024 11:38 AM MYSQL DEVELOPER Height 163.8 cm (5' 4.49) 06/24/2024 1 1:38 AM MYSQL DEVELOPER Body Mass Index 20.44 06/24/2024 11:38 AM MYSQL DEVELOPER Plan of Treatment Health Maintenance Due Date Last Done Comments COVID-19 vaccine series ( season) 2024 04/06/2021, 03/09/2021 Influenza Vaccine (#1) 2025 05/12/2011 BMI (ht and wt on same day) for age 18+ 06/24/2025 06/24/2024, 07/17/2023, 03/25/2022, Additional history exists Depression screening for age 12+ 06/24/2025 06/24/2024, 07/19/2023, 07/19/2023, Additional history exists Pap test for age 21-65 11/12/2028 , 11/13/2023, 04/10/2020 Tetanus booster 09/07/2030 09/07/2020, 12/16/2011 Hepatitis B series for 19+ Completed 09/05, 03/14/2006, 08/27/2001 Hepatitis C screening for age 18-79 Completed 04/10/2020 HIV for age 15-65 Completed 11/13/2023, , 05/12/2011 Pneumococcal series for age 6-49 Aged Out No longer eligible based on patient's age to complete this topic Procedures Procedure Name Priority Date/Time Associated Diagnosis Comments HEMOTHERAPIST THIN PREP PAP SCREEN IMAGED Routine 11/13/2023 2:32 PM CDT Screening for cervical cancer ANTI HIV 1/2 Routine 11/13/2023 2:30 PM CDT Vaginal odor Vaginal discharge Screen for STD (sexually transmitted disease) ANTI HCV Routine 04/10/2020 9:52 AM CDT Encounter for supervision of normal first in second trimester (HC) from Last 3 Months or Most Recently Relevant to Health Maintenance Results * HEMOTHERAPIST THIN PREP PAP SCREEN IMAGED [[id number]] (11/13/2023 2:32 PM CDT) Case Report Gynecologic Cytology Report Case: [id number] Authorizing Provider: Rossy Dc, Collected: 11/13/2023 1432 PA Ordering Location: [facility] Received: 11/13/[address] [place] [address] First Screen: Rosaura Salas Specimen: HEMOTHERAPIST ThinPrep Vial Screening, Cervical 11/24/2023 3:25 PM CDT [facility] INTERPRETATION/ RESULT NEGATIVE FOR INTRAEPITHELIAL LESION OR MALIGNANCY (NIL) (none) 11/24/2023 3:25 PM CDT [facility] EN[facility] at 1525 CDT ORGANISM(S) Shift in linda suggestive of bacterial vaginosis 11/24/2023 3:25 PM CDT [facility] SPECIMEN ADEQUACY Satisfactory for evaluation Endocervical component present 11/24/2023 3:25 PM CDT [facility] HPV REQUEST HPV and PAP 11/24/2023 3:25 PM CDT [facility] Date of LMP 10/14/23 11/24/2023 3:25 PM CDT [facility] Last Pap Date 04/10/20 11/24/2023 3:25 PM CDT [facility] Last Pap Result NIL 3:25 PM CDT [facility] Abnormal Pap or [place] Bx in last 5 years No 11/24/2023 3:25 PM CDT [facility] Menstrual Status Regular Periods 11/24/2023 3:25 PM CDT [facility] [place] Bx Done Today No 11/24/2023 3:25 PM CDT [facility] Additional Information None given 11/24/2023 3:25 PM CDT [facility] Comment: Cytology is screened at [facility] - [address], [place] [address] and [facility] - [address], [place] [address] and [facility] - [address] [place] [address] Interpreted at [facility] - [address], [place] [address] Automated Review Successful 11/24/2023 3:25 PM CDT [facility] Comment:Specimen processed s uccessfully by automated billet heater device, ThinPrep Imaging System, [employer] ANCILLARY TESTING HEMOTHERAPIST HPV Ordered, Please see separate report 11/24/2023 3:25 PM CDT [facility] Note The pap test is a screening technique, not a diagnostic procedure. It is used primarily to screen for squamous cancers and precursor lesions. Published studies have shown that it is subject to both false negative and false positive results. The pap test should not be used as the sole means to diagnose or exclude pre-malignant and malignant lesions. 11/24/2023 3:25 PM CDT [facility] Other (Cervical) Non-Blood / Unknown 11/13/2023 2:32 PM CDT 11/13/2023 2:32 PM CDT us Rossy [facility]/CYTOLOGY Fin al Result [facility] [address] [place] [address], * ANTI HIV 1/2 (11/13/2023 2:30 PM CDT) Pathologist [facility] HIV-1/HIV-2 SCREEN Non-Reacti ve Non-Reacti ve 11/13/2023 10:53 PM CDT [facility] TRAL LABORATORY Comment:HIV-1 p24 and HIV-1/ HIV-2 Ab Not Detected. Blood BLOOD SPECIMEN / Unknown Venipuncture / Unknown 11/13/2023 2:30 PM CDT 11/13/2023 2:30 PM CDT Rossy [facility] SEND OUTS Final Result Performing Organization Address [facility] Co de Phone Number [facility] [address] [place] [address], [place] * ANTI HCV (04/10/2020 9:52 AM CDT) Pathologist [facility] HEPATITIS C ANTIBODY Non-React justin Non-React justin 04/10/2020 11:03 PM CDT [facility] Comment:Antibodies to HCV no t detected; does not exclude the possibility of exposure to HCV. Blood BLOOD SPECIMEN / Unknown Venipuncture / Unknown 04/10/2020 9:52 AM CDT 04/10/2020 9:56 AM CDT Isadora [facility] Final R esult [facility] [address] [place] [address], from Last 3 Months or Most Recently Relevant to Health Maintenance Insurance [employer] [id number] [place] [id number] [address] [facility] [place] [id number] [facility] [place] [id number] Care Teams International Student Advisor Relationship Specialty Start Date End Date Piero Arias MD [address] [place] [id number] PCP - General Family Practice 10/15/20
[2025-02-10 22:28] VITALS: BP 124/71; PULSE 96; RESP 16; TEMP 36.7; O2SAT 96; BMI 20.8
--- OUTSIDE RECORDS SUMMARY | 2025-02-10 22:28 | XMS_ITS | Clinical Summary ---
[facility] Organization [email or web address] Address [address] [place] [address] Care Team Providers Care Gear And Spline Grinder Name Role Phone Needs PcpShilpa Primary Care Provider Unav ailable Source Comments You are receiving this document as you are listed as the primary care provider,follow-up provider, or the patient has been referred to you for consultation.This is in compliance with the Medicare and[facility] E[facility] Incentive Program,which states Providers who transition their patient to another setting of careor provider of care or refers their patient to another provider of care shouldprovide summary care record for each transition of care or referral. [employer] Allergies No known active allergies Medications * This document contains information received from the source organization and may not represent a complete record from that organization. ALPRAZolam (XANAX) 0.25 MG tabletIndicatio ns:Anxiety state (HRC) TAKE 1 TABLET BY MOUTH TWICE DAILY NEEDED FOR ANXIETY 60 0 10/31/2018 Active venlafaxine (EFFEXORXR) 150 MG 24 hour release capsuleIndicati ons:Anxiety and depression (HRC) Take 1 Capsule by mouth daily. 30 Capsule 1 07/01/2019 Active Active Problems Problem Noted Date Diagnosed Date Bunion 02/21/2019 Bunion 01/24/2019 Bipolar 2 disorder, major depressive episode 07/2017 Depression, major, recurrent, mild 05/10/2015 CHANDLER (generalized anxiety disorder) 01/19/2015 Major depressive disorder, single episode 2010 Overview (05/31/2019): Major depressive disorder, single episode, unspecified Anxiety state 08/30/2010 Overview (05/31/2019): Anxiety state, unspecified Resolved Problems Problem Noted Date Diagnosed Date Resolved Date Supervision of normal first 05/26/2011 08/03/2018 Bunion 11/14/2008 05/12/2011 Overview (05/31/2019): Left Preeclampsia 08/03/2018 Overview (05/30/2019): with second Immunizations Immunization Administration Dates Next Due 4vHPV (Gardasil) 10/29/2010,10/29/2010, 1,08/30/2010 DTP 01/01/1999, 5,02/18/1994,1993,08/01 Flu Vac (3+ yrs) 05/12/2011 HepB Ped/Adol (0-18 yrs) 09/05/2006,09/05/2006,0 03/14/2006,08/27/2001 IPV (Polio) 01/01/1999,02/18/1994,1993 ,1993 MCV4 (Menactra) 07/25/2012,03/27/2008,03/27/2008 MCV4 Menveo 2m.+ (two vial) 07/25/2012 MMR 01/01/1999,03/03/1995 TDAP (BOOSTRIX) 02/06/2014 Tdap 12/16/2011 Family History Medical History Relation Name Comments Depression Father Hypertension Father Anxiety Mother Good Health Mother Good Health Brother 3 Good Health Brother 4 Good Health Sister 2 Relation Name Status Comments Father Alive Mother Alive Brother 1 Alive Brother 2 Alive Brother 3 Brother 4 Sister 1 Alive Sister 2 Social History Tobacco Use Types Packs/Day Years Used Date Smoking Tobacco: Never Smokeless Tobacco: Never Alcohol Use Standard Drinks/Week Comments Yes 0 (1 standard drink = 0.6 oz pur e alcohol) occasional Comments No Sex and Gender Information Value Date Recorded Sex Assigned at Not on file Legal Sex Female 7:39 AM CDT Gender Identity Not on file Sexual Orientation Not on file Occupation Industry Job Start Date Job End Date student Not on file Not on file Not on file Last Filed Vital Signs Vital Sign Reading Time Taken Comments Blood Pressure 134/81 02/05/2019 1:26 PM CDT Pulse 84 02/21/2019 10:13 AM CDT Temperature 36.1 C (97 F) 02/21/2019 10:13 AM CDT Respiratory Rate 16 01/16/2019 9:22 AM CDT Oxygen Saturation 98% 01/16/2019 9:22 AM CDT Inhaled Oxygen Concentration - - Weight 51.5 kg (113 lb 8 oz) 02/21/2019 10:13 AM CDT Height 163.8 cm (5' 4.5) 05/01/2018 1:53 PM CDT Body Mass Index 19.18 05/01/2018 1:53 PM CDT Plan of Treatment Health Maintenance Due Date Last Done Comments Cervical Cancer Screening Due 1993 Hep C Screening (Preventive Services) 1993 HIV Screening (Preventive Services) 2009 HPV Vaccine (3 - 3-dose series) 02/27/2011 10/29/2010, 10/29/2010, 08/30/2010, Additional history exists Adult Preventive Visit 2011 COVID-19 Vaccine ( season) 2024 04/06/2021, 03/09/2021 Influenza Vaccine (#1) 2025 05/12/2011 DTaP/Tdap/Td Vaccine (8 - Tdap) 09/07/2030 09/07/2020, 02/06/2014, 12/16/2011, Additional history exists Zoster/Shingles Vaccine (1 of 2) 2043 IPV (Polio) Vaccine Completed 01/01/1999, 02/18/1994, 1993, Additional history exists HepB Vaccine Completed 09/05/2006, 12/2006, 03/14/2006, Additional history exists MCV4 Vaccine Aged Out 07/25/2012, 07/01, 03/27/2008, Additional history exists No longer eligible based on patient's age to complete this topic HepA Vaccine Aged Out No longer eligi ble based on patient's age to complete this topic Hib Vaccine Aged Out No longer eligi ble based on patient's age to complete this topic Meningococcal B Vaccine Aged Out No l onger eligible based on patient's age to complete this topic Pneumococcal Vaccine Aged Out No long er eligible based on patient's age to complete this topic Insurance [address] [place] [id number] [address] [place] [id number] [facility] Care Teams Gear And Spline Grinder Relationship Specialty Start Date End Date Needs PcpShilpa [address] [phone] PCP - General 11/18/21
[2025-02-10 22:58] LABS: Appearance Urine Cloudy (Clear)
--- NOTE | 2025-02-10 23:27 | ED.GENADULT ---
HPI - General Adult General Date Seen: 02/10/25 Chief complaint: Urogenital Problems, Female Stated complaint: possible UTI Time Seen by Provider: 02/10/25 23:20 History of Present Illness HPI narrative: Patient is a 29-year-old young woman here for evaluation of urinary symptoms which she says she has had for week. She has been trying to drink lot of fluids and has been using azo, hoping that it would get better but it has not. She has had prior urinary tract infections and this feels similar. She has dysuria, frequency and urgency. She has not had flank pain, did have some low back pain earlier in the week which got better with a heating pad. No new sexual partners, no vaginal discharge. No suspicion of . No fevers or chills, no vomiting. Related Data Home Medications ?Medication ?Instructions ?Recorded ?Confirmed venlafaxine 150 mg 150 mg PO DAILY 05/26/22 01/01/24 capsule,extended release 24 hr Previous Rx's ?Medication ?Instructions ?Recorded cyclobenzaprine 5 mg tablet 5 mg PO BID PRN muscle spasm #20 02/07/23 tabs naproxen 500 mg tablet 500 mg PO BID #60 tabs 02/07/23 gabapentin 100 mg capsule 100 mg PO TID #30 caps 03/08/23 ketorolac 10 mg tablet 10 mg PO Q8H 5 days #15 tabs 03/08/23 methylprednisolone 4 mg tablets in See Rx Instructions PO .COMPLEX 03/08/23 a dose pack (Medrol (Julio C)) #21 ea tizanidine 4 mg capsule (Zanaflex) 4 mg PO TID PRN muscle spasticity 03/08/23 #20 caps fluconazole 100 mg tablet 100 mg PO DAILY #7 tabs 01/01/24 (Diflucan) fluconazole 150 mg tablet 150 mg PO Q3D 2 doses #2 tabs 02/10/25 Allergies Allergy/AdvReac Type Severity Reaction Status Date / Time metronidazole AdvReac Unknown Rash Verified 01/01/24 22:01 [facility] Social History Smoking Status: Never smoker Do you use any of these nicotine containing products: None How often do you have a drink containing alcohol: never How often do you have six or more drinks on one occasion: Never AUDIT-C Alcohol total score: 0 Non-prescribed substance use: denies use service: No Exam Narrative: Exam Narrative: Vital signs reviewed In general, alert, well-appearing woman. Abdomen soft nontender back no CVA tenderness. Skin warm and dry well perfused. Const: Vital Signs, click to edit/add: Vital Signs - 24 hr 02/10/25 22:28 Temperature 98.0 F Pulse Rate [Left P ulse Oximeter] 96 Respiratory Rate 16 Blood Pressure [Ri ght Upper Arm] 124/71 Pulse Oximetry 96 Oxygen Delivery Me thod Room Air Course Course ED Course: Urine dip potentially affected by her azo, but she does have 25-50 white blood cells 10-25 red cells, consistent with likely urinary tract infection. Moderate bacteria, few squamous cells. Sinus for culture, recommend Macrobid, azo. She says she often gets yeast infections when she takes antibiotics I also sent some fluconazole. Discussed reasons to return such as significant flank pain, fevers chills vomiting. Urine culture pending. Vital Signs Vital signs: Initial Vital Signs Temperature 98.0 F 02/10/25 22:28 Temperature Source Temporal Artery Scan 02/10/25 22:28 Pulse Rate 96 02/10/25 22:28 Pulse Rhythm Regular 02/10/25 22:28 Respiratory Rate 16 02/10/25 22:28 Blood Pressure 124/71 02/10/25 22:28 Blood Pressure Mean 88 02/10/25 22:28 Blood Pressure Position Sitting 02/10/25 22:28 Pulse Oximetry 96 02/10/25 22:28 Oxygen Delivery Method Room Air 02/10/25 22:28 Vital Signs Temperature 98.0 F 02/10/25 22:28 Pulse Rate 96 02/10/25 22:28 Respiratory Rate 16 02/10/25 22:28 Blood Pressure 124/71 02/10/25 22:28 Pulse Oximetry 96 02/10/25 22:28 Oxygen Delivery Method Room Air 02/10/25 22:28 Temperature 98.0 F 02/10/25 22:28 Pulse Rate 96 02/10/25 22:28 Respiratory Rate 16 02/10/25 22:28 Blood Pressure 124/71 02/10/25 22:28 Pulse Oximetry 96 02/10/25 22:28 Oxygen Delivery Method Room Air 02/10/25 22:28 Medical Decision Making Lab Data Labs: Lab Results 02/10/25 Range/Units 22:30 Urine Color [place] A (Yellow) Urine Appearance Cloudy A (Clear) Urine pH 6.0 (5.0-8.5) Ur Specific [place] 1.020 (1.000-1.030) Urine Protein 3+ A (Negative) Urine Glucose (UA) Trace A (Negative) Urine Ketones Negative (Negative) Urine Blood 2+ A (Negative) Urine Nitrite Positive A (Negative) Urine Bilirubin Negative (Negative) Urine Urobilinogen 1.0 (0.2-1.0) Ur Leukocyte Esterase 3+ A (Negative) Urine RBC 10-25 A (0-2) Urine WBC 25-50 A (0-5) Ur Squamous Epith Cells Few (None-Few) Urine Bacteria Moderate A (None) Discharge Plan Discharge Clinical Impression: Urinary tract infection Patient Disposition: Home, Self-Care Condition: Stable Instructions: Urinary Tract Infection in Women (DC) Additional Instructions: Macrobid as prescribed. Drink lots of fluids. You can use azo over the next 24-48 hours if needed for ongoing symptoms. If urine culture suggest that we need to switch her antibiotic, we will call you. If at any time you are feeling significantly worse, have high fevers, flank pain, vomiting, or other significant changes cover return to the ER. Prescriptions: New fluconazole 150 mg tablet 150 mg PO Q3D Qty: 2 0RF No Action venlafaxine 150 mg capsule,extended release 24hr 150 mg PO DAILY Patient Comments: TAKE 1 CAPSULE BY MOUTH DAILY WITH 75 MG CAPSULE FOR 225 MG TOTAL cyclobenzaprine 5 mg tablet 5 mg PO BID PRN (Reason: muscle spasm) Qty: 20 0RF naproxen 500 mg tablet 500 mg PO BID Qty: 60 0RF ketorolac 10 mg tablet 10 mg PO Q8H 5 Days Qty: 15 0RF gabapentin 100 mg capsule 100 mg PO TID Qty: 30 2RF methylprednisolone [Medrol (Julio C)] 4 mg tablets,dose pack See Rx Instructions .ROUTE .COMPLEX Qty: 21 0RF Rx Instructions: orally per package directions tizanidine [Zanaflex] 4 mg capsule 4 mg PO TID PRN (Reason: muscle spasticity) Qty: 20 0RF fluconazole [Diflucan] 100 mg tablet 100 mg PO DAILY Qty: 7 0RF Follow Up/Referrals: Piero Arias MD [Primary Care Provider, Family Practice] Stand Alone Forms: [employer] Info Instructions
== END 2025-02-10 23:43 | disposition home or self-care (01) ==
LOC: ED 23:32
PROVIDERS: Emergency Provider Emergency Medicine; PCP Surgery
DX: N39.0 Urinary tract infection, site not specified (principal)
CPT/HCPCS: 81001; 87086; 99283; 99284